=== PATIENT | male | born 1950 | race Caucasian/White ===

== ENCOUNTER → 2016-09-26 | Outpatient (CLI) | payer OTHER ==
--- NOTE | 2016-09-26 08:08 | CT ---
EXAMINATION TYPE: CT abdomen pelvis w con DATE OF EXAM: 09/26/2016 7:50 AM COMPARISON: 03/23/2014 HISTORY: incisional hernia CT DLP: 1341.9 mGycm CONTRAST: CT scan of the abdomen and pelvis is performed with Oral Contrast and with IV Contrast, patient injec roddy with 100 mL of Omnipaque 300. FINDINGS: LUNG BASES-: No visible nodule. Left basilar linear atelectasis. LIVER/GB: No calcified gallstones. No space occupying hepatic lesion. Biliary tree is of normal ca liber. PANCREAS: No inflammation. No distinct mass. SPLEEN: No splenic enlargement. No lesion seen. ADRENALS: No nodule. No thickening. KIDNEYS/BLADDER: No hydronephrosis. No nephrolithiasis. Exophytic cystic lesion mid pole right kid sergei measuring 1.5 cm. Urinary bladder grossly unremarkable. BOWEL: Normal appendix. Normal bowel caliber. No inflammation. Duodenal diverticulum is again noted . Moderate sigmoid diverticulosis without diverticulitis. Postsurgical changes at the rectosigmoid ju nction. Wall thickening about the left portion of the rectum. Correlate clinically with digital recta l examination. No evidence for incisional hernia. Fat-containing small supraumbilical hernia. GENITAL ORGANS: No gross abnormality. LYMPH NODES: No greater than 1cm abdominal or pelvic lymph nodes are appreciated. AORTA: No significant abnormality. OSSEOUS STRUCTURES: No significant abnormality is seen. OTHER: No significant additional abnormality is seen. IMPRESSION: 1. Small fat-containing supraumbilical hernia. 2. Mild fatty hepatic infiltration. 3. Exophytic cyst midpole right kidney. 4. Rectal wall thickening may be spurious in nature. Correlate with digital rectal examination.
== END | disposition home or self-care (01) ==
LOC: RADCTMAIN 07:15
PROVIDERS: ATTEND Surgery
DX: K43.9 Ventral hernia without obstruction or gangrene (principal); K76.0 Fatty (change of) liver, not elsewhere classified; N28.1 Cyst of kidney, acquired; K62.89 Other specified diseases of anus and rectum
CPT/HCPCS: 74177; Q9967

== ENCOUNTER 2016-10-19 06:08 | Day surgery (SDC) | payer OTHER ==
[2016-10-13 14:44] VITALS: BMI 29.5
[~2016-10-19 06:08] MED LIST: DEXAMETHASONE SOD PHOSPHATE 10 MG/ML 1 ML VIAL IV ONE; HEPARIN SODIUM,PORCINE 5,000 UNIT/ML 1 ML VIAL SQ ONE; LACTATED RINGERS 1,000 ML IV SCH; LIDOCAINE 1% 20 ML VIAL (10MG/ML) FOR IV START INTRADERMA PRN; ONDANSETRON 4 MG/2 ML VIAL IVP ONE; Pre Op ABX Message 1 EACH MISC MISCELLANE ONE; SCOPOLAMINE 1.5MG/72HR PATCH TRANSDERM ONE
[2016-10-19] MEDS ORDERED: CLINDAMYCIN 900 MG in DEXTROSE 5% IN WATER 50 ML IVPB STA ×2 (07:30)
[2016-10-19] MEDS ORDERED: GLYCOPYRROLATE 0.2 MG/ML 2 ML VIAL ONE (07:32)
[2016-10-19] MEDS ORDERED: BUPIVACAIN-EPI 0.25%-1:200,000 30 ML VIAL SQ ONE ×2 (07:32→08:24)
[2016-10-19] MEDS ORDERED: PROPOFOL 10 MG/ML 20 ML VIAL IV ONE (07:32)
[2016-10-19] MEDS ORDERED: LIDOCAINE 1% INJ 10MG/ML (20 ML MDV) ONE (07:32)
[2016-10-19] MEDS ORDERED: HYDROmorphone (PF) 1 MG/ML ONE (07:32)
[2016-10-19] MEDS ORDERED: MIDAZOLAM 2 MG/2 ML VIAL ONE (07:32)
[2016-10-19] MEDS ORDERED: NEOSTIGMINE 1 MG/ML 10 ML VIAL ONE (07:32)
[2016-10-19] MEDS ORDERED: ePHEDrine 50 MG/ML 1 ML AMP ONE (07:32)
[2016-10-19] MEDS ORDERED: SUCCINYLCHOLINE CHLORIDE 100 MG/5 ML SYR IV ONE (07:32)
[2016-10-19] MEDS ORDERED: ROCURONIUM BROMIDE 10 MG/ML 10 ML VIAL IV ONE (07:32)
[2016-10-19] MEDS ORDERED: fentaNYL (PF) 50 MCG/ML 2 ML AMP ONE (07:32)
[2016-10-19] MEDS ORDERED: LACTATED RINGERS 1,000 ML IV ONE (08:22)
[2016-10-19 10:22] VITALS: TEMP 97.8
[2016-10-19] MEDS: HYDROmorphone 1 MG/ML 1 ML SYRINGE IVP PRN ×3 (10:24→10:46)
--- NOTE | 2016-10-19 10:57 | P.OP ---
Date of Procedure: 10/19/16 Preoperative Diagnosis: Incisional hernia Postoperative Diagnosis: Incisional hernia with diastasis Procedure(s) Performed: Robot assisted Laparoscopic incisional hernia repair with mesh Lysis of adhesions Implants: 20 x 15 cm Ventralex mesh with echo positioning system Anesthesia: ROMEO Surgeon: Reggie Ruiz Pathology: other Condition: stable Disposition: PACU Indications for Procedure: Painful incisional hernia Operative Findings: Lao cheese defect with mulitple hernias LArgest was 3.5 cm. Smaller ones measured 0.5 cm There was associated diastasis. Extensive peritoneal adhesions with the anterior abdominal wall and omentum Description of Procedure: This 66-year-old male who had a sigmoid resection. This was done approximately 2 years ago. He started developing swelling in the upper part of his incision that was uncomfortable and growing in size. He does heavy lifting for work. Due to the increase in size and discomfort and recommended repair of this hernia which on palpation measured approximately 3 cm across. He also had some diastases on clinical examination computed tomography scan was done which confirmed the findings. Informed consent was obtained and the patient prior to the operation. Patient identified in the preoperative holding area taken the operating room placed in supine position given general anesthesia with endotracheal intubation. The patient's right arm was tucked and left extended on an arm board. After appropriately positioning the patient the patient was prepped and draped in the usual sterile surgical fashion. Appropriate timeout was called. Patient received 900 mg of clindamycin due to ALLERGY to Keflex for skin prophylaxis and 5000 units of subcu heparin for thromboprophylaxis preoperatively. SCDs were also placed. Left upper quadrant with a identified and infiltrated with lidocaine small incision was made with the help of 11 blade and then a Veress needle was introduced position of which was checked with the help of the drop test. The abdomen was then insufflated to 15 mmHg. Once that was done, 12 mm port was placed in the left upper quadrant and 2 8 mm ports were placed in the left upper quadrant and left lower quadrant respectively. At this time for laparoscopic scope was removed and the robot was docked with the 12 mm camera and the progress in the left hand and scissors in the right hand were taken. There were extensive adhesions between the peritoneum and the anterior abdominal wall in the midline. These were meticulously taken down with the help of electrocautery thus exposing the incisional hernia with Lao cheese defect. There was one large hernia defect measuring 3.5 cm at the superior and the right lateral end of the incision and there was 2 smaller defects measuring approximately 0.5 cm. There was also diastases with thinning out of the midline fascia measuring approximately 5 cm across that extended from the falciform ligament to midway between the umbilicus and the pubis. At this time the decision was made to imbricate the diastases and closed the hernia defects. A 0 Stratafix [address] 1 needle was taken. After incising the falciform ligament and reflecting it superiorly so that there is appropriate exposure and landing the mesh the diastases and the hernia defects were closed. This was done by a running the suture with the Venetian blind Technique thus imbricating the midline as well as closing all the hernia defects along the full length of the widened incision. Although the accumulative length of those hernias was 4.5 cm to the extent of the closure that measured approximately 12 cm decision was made to use an 20 x 15 ventralex mesh with echo positioning system. The camera was removed and the rolled mesh was introduced in the abdominal cavity. After making a small stab incision in the midline the mesh was then pulled up against the anterior abdominal wall after which the balloon was inflated allowing the position of the mesh to be perfect. The mesh was then circumferentially sutured to the abdominal wall using two 2 0 V lock sutures running along the circumference of the mesh. Suturing of the mesh was done at intra-abdominal pressure of 8 mmHg. A third suture was run in the midline in the south to North direction tacking up the mesh in the midline to the anterior abdominal wall. Once that had been done all the sutures were cut and parked in the falciform ligament. The mesh was inspected and noted to be sutured into the appropriate position there was no bleeding. At this time the robot was undocked and all instruments removed. All the sutures and the balloon for the positioning system was removed and the 12 mm port site after which the port site was closed using using 0 PDS with a Hipolito Montanez. The wound itself was infiltrated with local anesthesia for pain control. The procedure was thus complete. All instruments port were removed and abdomen thoroughly desufflated. Skin was closed with 4-0 Monocryl and Dermabond was applied. Ford catheter was removed prior to extubation. Abdominal binder was placed and the patient was taken to recovery room in stable condition. The patient tolerated the procedure well there were no complications. Plan - Discharge Summary New Discharge Prescriptions: No Action Metoprolol Succinate [Toprol XL] 100 mg PO BID Omeprazole 20 mg PO BID amLODIPine [Norvasc] 5 mg PO DAILY Atorvastatin [Lipitor] 10 mg PO HS Lisinopril-Hctz 20-25 mg [Zestoretic 20-25] 1 each PO DAILY Ibuprofen [Ibuprofen] 800 mg PO TID PRN PRN Reason: Pain Glucosamine/Chondr Cherry A Sod [Osteo Bi-Flex Caplet] 1 tab PO BID Desonide [DesOwen .05%] 1 applic TOPICAL DAILY PRN PRN Reason: Dry Skin Discharge Medication List Metoprolol Succinate [Toprol XL] 100 mg PO BID 02/19/14 [History] Omeprazole 20 mg PO BID 02/19/14 [History] Atorvastatin [Lipitor] 10 mg PO HS 10/13/16 [History] Desonide [DesOwen .05%] 1 applic TOPICAL DAILY PRN 10/13/16 [History] Glucosamine/Chondr Cherry A Sod [Osteo Bi-Flex Caplet] 1 tab PO BID 10/13/16 [ History] Ibuprofen [Ibuprofen] 800 mg PO TID PRN 10/13/16 [History] Lisinopril-Hctz 20-25 mg [Zestoretic 20-25] 1 each PO DAILY 10/13/16 [History] amLODIPine [Norvasc] 5 mg PO DAILY 10/13/16 [History]
[2016-10-19] MEDS ORDERED: HYDROcodone/APAP 5-325MG 1 EACH TAB PO ONE (13:10)
[2016-10-19] MEDS ORDERED: TAMSULOSIN 0.4 MG CAP.ER.24H PO STA (14:33)
[2016-10-19] MEDS ORDERED: IBUPROFEN 200 MG TAB PO ONE (16:58)
[2016-10-19 17:03] VITALS: BP 138/75; PULSE 80; RESP 18
== END 2016-10-19 19:17 | disposition home or self-care (01) ==
LOC: OR 06:08
PROVIDERS: ATTEND Surgery
DX: K43.2 Incisional hernia without obstruction or gangrene (principal); K66.0 Peritoneal adhesions (postprocedural) (postinfection); I10 Essential (primary) hypertension; E78.5 Hyperlipidemia, unspecified; K21.9 Gastro-esophageal reflux disease without esophagitis; Z88.1 Allergy status to other antibiotic agents; Z79.899 Other long term (current) drug therapy; Z87.891 Personal history of nicotine dependence; Z90.49 Acquired absence of other specified parts of digestive tract
CPT/HCPCS: 49329; 49654; S2900; 86850; 86900; 86901

== ENCOUNTER → 2017-07-24 | Outpatient (CLI) | payer BC, MEDICARE ==
--- NOTE | 2017-07-24 13:07 | XR ---
Left hand HISTORY: Left hand pain 3 views of the left hand Arthropathy changes are present at the interphalangeal joints, metacarpophalangeal joint of the first digit. 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 Some arthropathy change also present at the carpometacarpal joints proximally greatest at the first digit. Some remod eling present at the radiocarpal joint, marginal spurring. There is associated joint space loss. Alig nment and bone mineralization is maintained. Small metallic foreign body present dorsal to the third metacarpal head and also lateral to the distal radius metaphysis. IMPRESSION: Osteoarthritis and additional findings above, foreign bodies.
== END | disposition home or self-care (01) ==
LOC: RADXRYALE 09:39
PROVIDERS: ATTEND Physician Assistant Medical
DX: M18.12 Unilateral primary osteoarthritis of first carpometacarpal joint, left hand (principal); S60.552A Superficial foreign body of left hand, initial encounter

== ENCOUNTER → 2021-07-07 | Outpatient (CLI) | payer MEDICARE, BC ==
--- NOTE | 2021-07-07 11:07 | XR ---
EXAMINATION TYPE: XR chest 2V DATE OF EXAM: 07/07/2021 COMPARISON: X-ray dated 02/18/2014 HISTORY: Cough TECHNIQUE: Frontal and lateral views of the chest are obtained. FINDINGS: Questionable small left basal pulmonary atelectasis. Unremarkable lungs otherwise. No pleural effusio n or pneumothorax. No cardiomegaly. Degenerative changes of the thoracic spine. IMPRESSION: As above.
== END | disposition home or self-care (01) ==
LOC: RADXRYALE 08:44
PROVIDERS: ATTEND Physician Assistant
DX: M47.814 Spondylosis without myelopathy or radiculopathy, thoracic region (principal)
CPT/HCPCS: 71046

== ENCOUNTER 2022-10-25 08:03 | Day surgery (SDC) | payer MEDICARE, BC ==
[2022-10-24 08:47] VITALS: BMI 31.8
[2022-10-25] MEDS ORDERED: LIDOCAINE 1% (10MG/ML) FOR IV START INTRADERMA PRN (08:15)
[2022-10-25] MEDS ORDERED: ONDANSETRON 4 MG/2 ML VIAL IVP PRN (08:15)
[2022-10-25] MEDS ORDERED: LACTATED RINGERS 1,000 ML IV SCH (08:15)
[2022-10-25 08:41] VITALS: TEMP 97
[2022-10-25 08:45] LABS: Glucose,Whole Blood 121 mg/dL (70-110)
[2022-10-25] MEDS ORDERED: PROPOFOL 10 MG/ML 20 ML VIAL IV ONE (08:53)
--- NOTE | 2022-10-25 09:14 | P.PCN ---
Date of Procedure: 10/25/22 Procedure(s) Performed: BRIEF HISTORY: Patient is a 72-year-old pleasant white male scheduled for an elective colonoscopy as a part of screening for colon cancer. PROCEDURE PERFORMED: Colonoscopy with snare polypectomy and biopsy. PREOPERATIVE DIAGNOSIS: Screening for colon cancer. IV sedation per Anesthesia. PROCEDURE: After informed consent was obtained, the patient, was brought into the endoscopy unit. IV sedation was administered by Anesthesia under continuous monitoring. Digital rectal examination was normal. Initially the Olympus CF-160 flexible video colonoscope was then inserted in the rectum, gradually advanced into the cecum without any difficulty. Careful examination was performed as the scope was gradually being withdrawn. Ileocecal valve and the appendiceal orifice were visualized and appeared normal. Prep was excellent. Mucosa of the cecum, had 2 mm and 3 mm polyp that was removed by cold biopsy. In the ascending colon there was a 4 mm polyp removed by cold biopsy. In the descending colon there was a 6 minute a polyp removed by snare polypectomy. Rest of the ascending colon, transverse colon, descending colon, sigmoid colon, and rectum appeared normal. Scattered left-sided diverticulosis. Retroflexion was performed in the rectum and no lesions were seen. The patient tolerated the procedure well. IMPRESSION: 2 mm and 3 mm cecal polyp status post cold biopsy 4 mm ascending colon polyp status post cold biopsy 6 millimeters descending colon polyp status post polypectomy Scattered left-sided diverticulosis RECOMMENDATIONS: Findings of this examination were discussed with the patient as well as a family. He was advised to follow with the biopsy results. If the biopsies adenoma he can have a repeat colonoscopy in 3 years
[2022-10-25 09:34] VITALS: BP 158/78; PULSE 78; RESP 16
== END 2022-10-25 09:53 | disposition home or self-care (01) ==
LOC: ORWHC2ENDO 08:03
PROVIDERS: ATTEND Internal Medicine Gastroenterology
DX: Z12.11 Encounter for screening for malignant neoplasm of colon (principal); D12.0 Benign neoplasm of cecum; D12.2 Benign neoplasm of ascending colon; D12.4 Benign neoplasm of descending colon; K57.30 Diverticulosis of large intestine without perforation or abscess without bleeding
CPT/HCPCS: 88305; 45380; 45385; J2704

== ENCOUNTER → 2024-02-20 | Outpatient (CLI) | payer MEDICARE, BC ==
--- NOTE | 2024-02-21 06:43 | CA ---
Transthoracic Echo Report Name: Chi Chapa Age: 73 Gender: M : 1950 Exam Date: 02/20/2024 11:33 Exam Location: [facility] Ht (in): 74 Wt (lb): 250 Ordering Physician: Harman Arana DO Attending/Referring Phys: Paige Zuleta PAC Risk Control Specialist Julissa Us RDCS Procedure CPT: Indications: r53.83 Other Fatigue Cardiac Hx: Technical Quality: Fair Contrast 1: Total Dose (mL): Contrast 2: Total Dose (mL): MEASUREMENTS (Male / Female) Normal Values 2D ECHO LV Diastolic Diameter PLAX 4.0 cm 4.2 - 5.9 / 3.9 - 5.3 cm LV Systolic Diameter PLAX 2.9 cm IVS Diastolic Thickness 1.6 cm 0.6 - 1.0 / 0.6 - 0.9 cm LVPW Diastolic Thickness 1.6 cm 0.6 - 1.0 / 0.6 - 0.9 cm LV Relative Wall Thickness 0.8 RV Internal Dim ED PLAX 4.1 cm LA Volume 59.3 cm??? 18 - 58 / 22 - 52 cm??? LA Volume Index 24.1 cm???/m??? 16 - 28 cm???/m??? M-MODE Aortic Root Diameter MM 3.2 cm LA Systolic Diameter MM 5.2 cm LA Ao Ratio MM 1.6 AV Cusp Separation MM 2.1 cm DOPPLER AV Peak Velocity 80.9 cm/s AV Peak Gradient 2.6 mmHg AV Mean Velocity 62.3 cm/s AV Mean Gradient 1.7 mmHg AV Velocity Time Integral 12.6 cm LVOT Peak Velocity 68.5 cm/s LVOT Peak Gradient 1.9 mmHg LVOT Velocity Time Integral 12.8 cm MV Area PHT 5.3 cm??? Mitral E Point Velocity 85.4 cm/s Mitral A Point Velocity 0.2 cm/s Mitral E to A Ratio 544.8 MV Deceleration Time 144.4 ms MV E' Velocity 7.8 cm/s Mitral E to MV E' Ratio 10.9 TR Peak Velocity 222.2 cm/s TR Peak Gradient 19.7 mmHg Right Ventricular Systolic Press 24.6 mmHg FINDINGS Left Ventricle Moderately increased left ventricular wall thickness. Left ventricular cavity size normal. Normal left ventricular systolic function with no obvious regional wall motion abnormalities. Left ventricular ejection fraction is estimated at 55-60 %. Indeterminate diastolic dysfunction Right Ventricle Normal RV size. Right ventricular systolic pressure within normal limits. Right Atrium Normal right atrial size. Left Atrium Mildly increased left atrial volume. Mildly increased left atrial area. Mitral Valve Structurally normal mitral valve. Mild mitral regurgitation. Aortic Valve Trileaflet aortic valve. No aortic valve stenosis or regurgitation. Tricuspid Valve Structurally normal tricuspid valve. Mild tricuspid regurgitation. Pulmonic Valve Structurally normal pulmonic valve. Pericardium No pericardial effusion. Aorta Normal size aortic root and proximal ascending aorta. CONCLUSIONS LVEF 55 to 60% Moderate concentric LVH No obvious regional wall motion abnormality Mild left atrial dilatation Normal RV size and systolic function Mild mitral regurgitation Previewed by: Dr Cecil Hernadez (Electronically Signed) Final Date: 21 February 2024 06:42
== END | disposition home or self-care (01) ==
LOC: RADECHMAIN 11:11
PROVIDERS: ATTEND Family Medicine
DX: I34.0 Nonrheumatic mitral (valve) insufficiency (principal); R53.83 Other fatigue
CPT/HCPCS: 93306